=== PATIENT | female | born 1980 | race Hispanic/Latino ===

== ENCOUNTER 2024-01-12 00:32 | Emergency (ER) | payer OTHER ==
[~2024-01-12] VITALS: Ht 152.4 cm; Wt 98.9 kg
[2024-01-12 00:58] LABS: APPEARANCE,URINE CLEAR (CLEAR); BILIRUBIN,URINE NEGATIVE (NEGATIVE); COLOR,URINE LIGHT-YELLOW (YELLOW); GLUCOSE, URINE (UA) NEGATIVE (NEGATIVE); KETONES,URINE NEGATIVE (NEGATIVE); LEUKOCYTE ESTERASE ,URINE NEGATIVE Leu/uL (NEGATIVE); NITRATE,URINE NEGATIVE (NEGATIVE); OCCULT BLOOD,URINE NEGATIVE (NEGATIVE); PROTEIN,URINE 10 mg/dL (NEGATIVE); UROBILINOGEN,URINE 0.2 mg/dL (0.2-1.0)
[2024-01-12 00:59] LABS: BASOPHILS # (AUTO) 0.06 K/uL (0.00-0.20); BASOPHILS % (AUTO) 0.5 % (0.0-5.0); EOSINOPHILS # (AUTO) 0.05 K/uL (0.00-0.70); EOSINOPHILS % (AUTO) 0.4 % (0.0-8.0); HEMATOCRIT 33.8 % (36-48); IMMATURE GRANULOCYTE ABSOLUTE 0.06 K/uL (0-1); LYMPHOCYTES # (AUTO) 2.3 K/uL (1.0-4.8); LYMPHOCYTES % (AUTO) 19.8 % (21.0-51.0); MEAN CORPUSCULAR HEMOGLOBIN 29.1 pg (27.0-33.0); MEAN CORPUSCULAR HGB CONC 32.8 g/dL (32.0-36.0); MEAN CORPUSCULAR VOLUME 88.7 fL (79-99); MONOCYTES # (AUTO) 0.8 K/uL (0.1-1.0); MONOCYTES % (AUTO) 6.4 % (3.0-13.0); NEUTROPHILS # (AUTO) 8.5 K/uL (1.8-7.7); NEUTROPHILS % (AUTO) 72.4 % (40.0-77.0); PLATELET COUNT (AUTO) 310 K/uL (130-400); RED BLOOD CELL COUNT(AUTO) 3.81 MIL/uL (4.00-5.50); RED CELL DISTRIBUTION WIDTH 13.3 % (11.0-15.5); WHITE BLOOD COUNT (AUTO) 11.7 K/uL (4.8-10.8)
[2024-01-12 01:00] LABS: ADD UA MICROSCOPIC YES
[2024-01-12 01:02] LABS: MUCUS,URINE RARE LPF (None Seen); SQUAMOUS EPITHELIAL CELL,UR RARE /HPF (0-2)
[2024-01-12 01:09] LABS: CREATININE 0.8 mg/dL (0.5-1.0); POTASSIUM 3.2 mmol/L (3.5-5.1)
[2024-01-12 01:13] LABS: ALBUMIN 3.2 g/dL (3.5-5.0); BILIRUBIN,TOTAL 0.2 mg/dL (0.2-1.0)
[2024-01-12] MEDS: MORPHINE 4 MG SYG IVP ONE ×4 (01:19→14:48)
[2024-01-12] MEDS: ONDANSETRON 4MG INJ IVP ONE (01:19)
[2024-01-12] MEDS: POTASSIUM BICARB/CIT AC 25 MEQ TABLET.EFF PO ONE (03:19)
[2024-01-12] MEDS ORDERED: IOHEXOL-350 75 ML VIAL IV ONE (04:41)
[2024-01-12 12:30] VITALS: BP 100/57; PULSE 97; RESP 14; O2SAT 97
[2024-01-12] MEDS: CEFTRIAXONE 1G VIAL IVPB ONE (14:13)
[2024-01-12] MEDS ORDERED: HYDR-4060 PO (15:06)
[2024-01-12] MEDS ORDERED: DOXY100C61 PO (15:06)
[2024-01-12] MEDS ORDERED: ONDA4TAB10 PO (15:06)
[2024-01-12] MEDS ORDERED: IBUP-2077 PO (15:07)
== END 2024-01-12 15:10 | disposition home or self-care (01) ==
LOC: EDH 00:32
DX: N83.201 Unspecified ovarian cyst, right side (principal); R10.2 Pelvic and perineal pain
CPT/HCPCS: 99285; 74176; 96365; 76856; 96375; 80053; 83690; 85025; 83605; 81001; 81025; 36415; 74177; 96376 ×2; J0696; J2405; J2270 ×4; Q9967